=== PATIENT | male | born 1950 | race Caucasian/White ===

== ENCOUNTER 2016-11-05 06:14 | Inpatient (IN) | payer OTHER, MEDICARE ==
[2016-10-26 10:02] LABS: BASOPHILS 1.1 %; BASOPHILS ABSOLUTE 0.06 10/3/uL (0.0-0.16); EOSINOPHILS 2.6 %; EOSINOPHILS ABSOLUTE 0.15 10/3/uL (0.0-0.53); HEMATOCRIT 40.4 % (40.0-51.0); HEMOGLOBIN 13.3 g/dL (13.6-17.8); IMMATURE GRANULOCYTES 0.4 %; IMMATURE GRANULOCYTES ABSOLUTE 0.02 10/3/uL (0.0-0.11); LYMPHOCYTES 24.3 %; LYMPHOCYTES ABSOLUTE 1.38 10/3/uL (0.67-4.30); MANUAL DIFF NO %; MEAN CORPUS HGB CONC 32.9 g/dL (32.0-36.0); MEAN CORPUSCULAR HEMOGLOB 32.3 pg (26.0-34.0); MEAN CORPUSCULAR VOLUME 98.1 fL (80-100); MEAN PLATELET VOLUME 9.5 fL (9.2-13.0); MONOCYTES ABSOLUTE 0.74 10/3/uL (0.21-1.20); NEUTROPHILS 58.6 %; NEUTROPHILS ABSOLUTE 3.33 10/3/uL (2.02-8.40); PLATELET COUNT 165 10/3/uL (150-400); RBC DISTRIBUTION WIDTH 17.7 % (12.0-16.0); RED CELL COUNT 4.12 10/6/uL (4.7-6.1); WHITE BLOOD CELLS 5.7 10/3/uL (4.5-10.5)
[2016-10-26 10:18] LABS: A/G RATIO 0.6 (0.7-1.9); ALBUMIN 3.1 G/DL (3.5-5.0); ALKALINE PHOSPHATASE 194 U/L (45-117); BUN (BLOOD UREA NITROGEN) 19 MG/DL (6-23); CALCIUM, SERUM 9.4 MG/DL (8.5-10.4); CHLORIDE, SERUM 101 MMOL/L (96-112); CO2 (CARBON DIOXIDE) 26 MMOL/L (24-34); CREATININE 1.05 MG/DL (0.70-1.30); GFR AFRICAN AMERICAN 84 ML/MIN (>=60); GFR NON AFRICAN AMERICAN 73 ML/MIN (>=60); GLOBULIN 4.8 G/DL (2.5-4.1); GLUCOSE, SERUM 120 MG/DL (60-99); SGOT(AST) 79 U/L (5-40); SGPT(ALT) 50 U/L (5-65); SODIUM, SERUM 137 MMOL/L (135-148); TOTAL BILIRUBIN 0.9 MG/DL (0-1.2); TOTAL PROTEIN 7.9 G/DL (6.0-8.5)
--- NOTE | ~2016-11-05 | PREOPHP ---
PreOp History and Physical [id number] [place]. [address] NAME: FOZIA AYALA : 46 STATUS : PRE [facility]#: [id number] AGE: 66 ADM/REG DATE : MR#: [id number] REPORT SERV DATE: 11/05/16 DICTATED BY: RELL MANDUJANO III DATE: 10/13/16 REPORT STATUS : Draft TRANSCRIBED BY: MODL DATE: 10/13/16 HISTORY OF PRESENT ILLNESS: This 66-year-old male comes to the operating room for repair of a large incisional hernia with multiple components to the hernia. The patient has a long, large midline incision, which was related to a previous transverse colectomy, which was performed several years ago. The patient has multiple incisional hernias along the entire length of the incision. These hernias have become larger with time and are symptomatic in terms of local pain and discomfort and near-incarcerated symptoms. The patient has had no nausea, vomiting, or obstructive symptoms. He comes to the operating room now for repair of this large incisional hernia involving the entire length of the incision. PAST MEDICAL HISTORY: 1. History of transverse colon cancer, with omental and hepatic metastasis, with stable disease with the patient on maintenance chemotherapy. 2. Hypertension. 3. History of pulmonary embolus in the past. MEDICATIONS: Amlodipine, lisinopril, metoprolol, omeprazole, Xarelto, and hydrochlorothiazide. ALLERGIES: NONE. PAST SURGICAL HISTORY: Includes inguinal hernia repair x2, appendectomy, and transverse colectomy. FAMILY HISTORY: Positive for heart disease. SOCIAL HISTORY: The patient has a previous history of tobacco use. He has a history of alcohol use. REVIEW OF SYSTEMS: The patient complains of shortness of breath and easy bruising. His 14-point review of systems is otherwise unremarkable. PHYSICAL EXAMINATION: GENERAL: Reveals a very obese male, in no acute distress. He is alert and oriented x3. VITAL SIGNS: Blood pressure 98/73, pulse 103, temp 98.8. HEENT: Unremarkable. CRANIAL NERVES: 2 through 12 are normal. LUNGS: Clear. CARDIAC: Normal. ABDOMEN: Soft and nontender. The patient has a well-healed midline incision from the xiphoid to the umbilicus. There were multiple incisional hernias along the entire length of the incision. The hernias are reducible. EXTREMITIES: Normal. PreOp History and Physical [address] [address] NAME: FOZIA AYALA : 46 STATUS : PRE [facility] PAT#: [id number] AGE: 66 ADM/REG DATE : MR#: [id number] REPORT SERV DATE: 11/05/16 DICTATED BY: RELL MANDUJANO III DATE: 10/13/16 REPORT STATUS : Draft TRANSCRIBED BY: SERENA DATE: 10/13/16 LABORATORY DATA: CT scan of the abdomen and pelvis shows pulmonary nodules, hepatic nodules, and incisional hernia containing small bowel. ASSESSMENT: 1. 66-year-old male with enlarging symptomatic incisional hernias. 2. 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 3. Hypertension. 4. Obesity. PLAN: The patient comes to the operating room now for repair of this large incisional hernia with multiple components. This procedure, the risks, benefits, and alternatives, including not limited to the risk for bleeding, infection, enterotomy, injury to any abdominal structure, postop small bowel obstruction, ileus, and recurrence of any or all of the hernias, seroma formation, hematoma formation, need for use of mesh, risk of infection of mesh or enterocutaneous fistula requiring removal of the mesh, and unforeseen complications including deep venous thrombosis, pulmonary embolus, myocardial infarction, stroke, pneumonia, and have been fully and completely explained to the patient at length prior to surgery. The fact that this is a major operation with risk for major morbidity and mortality has been explained. The expected length of recovery has been explained. The option of nonoperative management has been offered to the patient but declined. The fact that he will be at increased risk for thromboembolic complications while his Xarelto is held perioperatively has been explained as well as increased risk of bleeding because of use of this medication. The patient's questions have been answered. He understands the risks and agrees to the surgery as planned. DOUG/SERENA Rell Mandujano III, M.D. / [id number]
--- NOTE | ~2016-11-05 | OP ---
Record Of Operation [facility] [address], [place] [address] NAME: FOZIA AYALA : 46 STATUS : ADM Mario PAT#: [id number] AGE: 66 ADM/REG DATE : 11/05/16 MR#: [id number] REPORT SERV DATE: 11/05/16 DICTATED BY: RELL MANDUJANO III DATE: 11/05/16 REPORT STATUS : Draft TRANSCRIBED BY: MODL DATE: 11/05/16 DATE OF PROCEDURE: 11/05/2016 ADDENDUM The procedure performed was open repair of a massive incisional hernia with Prolene mesh and bilateral external oblique fascial component separation. Vicenta/SERENA Rell Mandujano III, M.D. / [id number] CC: Trenton Coyne III, D.O.
--- NOTE | ~2016-11-05 | OP ---
Record Of Operation [facility] [address] [facility] [place]. [address] NAME: FOZIA AYALA : 46 STATUS : ADM Mario PAT#: [id number] AGE: 66 ADM/REG DATE : 11/05/16 MR#: [id number] REPORT SERV DATE: 11/06/16 DICTATED BY: RELL MANDUJANO III DATE: 11/05/16 REPORT STATUS : Draft TRANSCRIBED BY: MODL DATE: 11/05/16 DATE OF PROCEDURE: 11/05/2016 PREOPERATIVE DIAGNOSIS: Massive symptomatic incisional hernia. POSTOPERATIVE DIAGNOSES: Massive symptomatic incisional hernia, large incisional hernia with two components. </PROCEDURES Open repair of a massive incisional hernia with Prolene mesh and bilateral external oblique fascial component separation. SURGEON: Rell Mandujano M.D. ANESTHESIA: General with intubation. COMPLICATIONS: None. ESTIMATED BLOOD LOSS: 10 mL. SPECIMENS: None. DRAINS: Dharmesh-Knutson in subcutaneous tissue. LAP AND SPONGE COUNT: Correct x3. BRIEF HISTORY: This 66-year-old male presented with an extremely large, massive incisional hernia which was symptomatic. There was a small hernia just inferior to this, which was also symptomatic. This was related to a previous laparotomy for colon surgery. It was felt that open repair of this incisional hernia was indicated. This procedure, the risks, benefits, and alternatives, including but not limited to the risk for bleeding, infection, enterotomy, injury to any abdominal structure, postop small bowel obstruction, ileus, recurrence of the hernia, seroma formation, hematoma formation, infection of the mesh or enterocutaneous fistula requiring removal of mesh and unforeseen complications including deep venous thrombosis, pulmonary embolus, myocardial infarction, stroke, pneumonia, and were fully and completely explained to the patient's family at length prior to the surgery. The fact that this was a major operation with risk for major morbidity and mortality was explained. The expected length of recovery was explained. The patient had questions, which were answered. He fully understood the risks and agreed to the surgery as planned. FINDINGS: The patient had an extremely large incisional hernia. There was a second incisional hernia just inferior to this. These were both repaired through the same incision. Bilateral external oblique component separation was performed to relax the incision towards the midline. Record Of Operation [facility] [address] [facility] [place]. [address] NAME: FOZIA AYALA : 46 STATUS : ADM Mario PAT#: [id number] AGE: 66 ADM/REG DATE : 11/05/16 MR#: [id number] REPORT SERV DATE: 11/06/16 DICTATED BY: RELL MANDUJANO III DATE: 11/05/16 REPORT STATUS : Draft TRANSCRIBED BY: MODLisa DATE: 11/05/16 DESCRIPTION OF PROCEDURE: After being properly identified and after discussing the risks and benefits of the surgery with the patient's family again in the preoperative area, the patient was taken to the operating room and placed in supine position on the operating room table. General anesthesia was administered and he was intubated without difficulty. A Cavazos catheter was inserted. The abdomen was prepped and draped sterilely in the usual fashion. After an appropriate "time-out" per [employer] standards, a midline incision was made over the previous midline incision beginning in the mid abdomen continued toward the umbilicus, the incision was continued to the subcutaneous tissue. Hemostasis was controlled with the cautery. We immediately encountered a large fascial defect. This involved the entire length of the incision. There was a second component to this just to the right of the inferior aspect of this incision. The bridge between these two defects was opened so as to have one large incisional hernia. Using sharp dissection, the skin and subcutaneous tissue around the defect anteriorly was fully mobilized to the lateral edges of the abdominal wall bilaterally. The mobilization was continued to the lateral aspect of the external oblique fascia. The external oblique component separation was then performed by dividing the external oblique fascia laterally along the entire length of the incision. This resulted in good relaxation of the external oblique fascia and gave us another 2 cm in the midline. This was done bilaterally. There were some adhesions between the omentum and underside of the abdominal wall posteriorly and these were divided. There was no obvious evidence for carcinomatosis or malignancy in the abdominal cavity. Hemostasis was assured. We then selected a Ventralight coated mesh. This was placed beneath the edges of the fascia around the entire periphery of the defect so as to have the mesh overlap the edges of the fascia by 3 cm around the entire periphery of the defect. The mesh was then secured around the edges of the fascia with short segments of interrupted #1 Prolene sutures. Upon completion of this, the mesh lay nicely over the defect and was located posterior to the fascia. Hemostasis was assured. The mesh was not twisted or kinked in anyway and was not under any tension. The wound was irrigated copiously with saline. Hemostasis was assured. A Dharmesh-Knutson drain was brought through the separate stab wound and placed in the subcutaneous tissue. The subcutaneous tissue was closed with a running 3-0 chromic suture. The skin was closed with a running subcuticular 4-0 Monocryl stitch. Dressings were applied. Anesthesia was reversed. The patient was taken to the recovery room in stable condition. He tolerated the procedure well. His family was informed the results of the surgery. The patient will remain in the hospital for postoperative care. DOUG/SERENA Rell Mandujano III, M.D. / [id number] Record Of Operation [address] [address] NAME: FOZIA AYALA : 46 STATUS : ADM Mario PAT#: [id number] AGE: 66 ADM/REG DATE : 11/05/16 MR#: [id number] REPORT SERV DATE: 11/06/16 DICTATED BY: RELL MANDUJANO III DATE: 11/05/16 REPORT STATUS : Draft TRANSCRIBED BY: SERENA DATE: 11/05/16 CC: Trenton Coyne III, D.O.
--- NOTE | ~2016-11-05 | DS ---
Discharge Summary [facility] [address] [place]. [address] NAME: FOZIA AYALA : 46 STATUS : DIS IN PAT#: [id number] AGE: 66 ADM/REG DATE : 11/05/16 MR#: [id number] REPORT SERV DATE: 11/19/16 DICTATED BY: RELL MANDUJANO III DATE: 11/18/16 REPORT STATUS : Draft TRANSCRIBED BY: SERENA DATE: 11/18/16 Data Collection from hospitalization DISCHARGE DIAGNOSIS(ES): 1. Massive symptomatic incisional hernia. 2. Large incisional hernia with two component. 3. Hypertension. 4. History of transverse colon cancer and hepatic metastasis. CONSULTATIONS: None. PROCEDURES PERFORMED: Open repair of massive incisional hernia with Prolene mesh and bilateral external oblique fascial component separation, 11/05/2016. MEDICATIONS: Norvasc 10 mg daily, hydrochlorothiazide 25 mg daily, [place] 5/325 one to two tablets every six hours as needed, Prinivil 20 mg daily, Toprol-XL 25 mg daily, Prilosec 20 mg daily, and Xarelto 20 mg as instructed. CONDITION AT DISCHARGE: Stable. DISPOSITION: The patient was discharged home on a low-residue diet with activities as instructed. He would follow up with me in two weeks following discharge. HOSPITAL COURSE: This is a 66-year-old man who had presented with an extremely large massive incisional hernia which was symptomatic. There was a small hernia just inferior to this which was also symptomatic. This was related to a previous laparotomy for colon surgery. It was felt that open repair of this incisional hernia was indicated. Treatment options were discussed, and it was elected to proceed with surgical intervention. He was admitted to the hospital at this time for further evaluation and treatment. Upon admission, he was taken to the operating room where he underwent the above-mentioned procedure. He tolerated this well. There were no complications. On postop day #1, he was comfortable. His lungs were clear. He was tolerating his diet. The Cavazos catheter was removed, and REFERRAL NURSE was discontinued. His diet was advanced. We encouraged him to increase his activity. White blood cell count was 12,900. On postop day #2, he was afebrile. He was tolerating his diet. He was passing flatus. He was encouraged to use incentive spirometry. Discharge planning was performed. He was making a slow but steady recovery. On 11/08/2016, he continued to do well. White count had decreased to 6500. Discharge instructions were given. Due to his improved and stable condition, he was discharged home with the above-stated instructions. Information collected by: Geno Bonds I submit the above information as my discharge summary. LIDIA/SERENA Discharge Summary [address] [address] NAME: FOZIA AYALA : 46 STATUS : DIS IN PAT#: [id number] AGE: 66 ADM/REG DATE : 11/05/16 MR#: [id number] REPORT SERV DATE: 11/19/16 DICTATED BY: RELL MANDUJANO III DATE: 11/18/16 REPORT STATUS : Draft TRANSCRIBED BY: SERENA DATE: 11/18/16 Rell Mandujano III, M.D. / [id number] CC: Trenton Coyne III, D.O.
[~2016-11-05 06:14] MED LIST: AVASTIN; BACDS PO; CIP5 PO; HYDROCHLOROT12.5 MG PO; HYDROCHLOROT25 MG PO; LOP25 PO; LOVENOX1C SC; MULTIVITAMI1 PO; NORCO1 TA1 PO; NORV10 PO; PR12.5; PRILO PO; PRIN20 PO; PROTONIX PO; TOPXL25 PO; XARELTO15 MG PO; XARELTO20 MG PO; ZESTRIL20 MG PO; ZOFRAN ODT4 MG; [UNRECOGNIZED DRUG - CODE]
[2016-11-06 06:52] LABS: BASOPHILS 0.1 %; BASOPHILS ABSOLUTE 0.01 10/3/uL (0.0-0.16); EOSINOPHILS 0 %; HEMOGLOBIN 11.1 g/dL (13.6-17.8); IMMATURE GRANULOCYTES 0.2 %; IMMATURE GRANULOCYTES ABSOLUTE 0.03 10/3/uL (0.0-0.11); LYMPHOCYTES 5.7 %; LYMPHOCYTES ABSOLUTE 0.74 10/3/uL (0.67-4.30); MEAN CORPUS HGB CONC 33.5 g/dL (32.0-36.0); MEAN CORPUSCULAR HEMOGLOB 32.5 pg (26.0-34.0); MEAN CORPUSCULAR VOLUME 96.8 fL (80-100); MEAN PLATELET VOLUME 9.1 fL (9.2-13.0); MONOCYTES 9.7 %; MONOCYTES ABSOLUTE 1.25 10/3/uL (0.21-1.20); NEUTROPHILS 84.3 %; NEUTROPHILS ABSOLUTE 10.89 10/3/uL (2.02-8.40); PLATELET COUNT 142 10/3/uL (150-400); RED CELL COUNT 3.42 10/6/uL (4.7-6.1)
[2016-11-06 06:55] LABS: HEMATOCRIT 33.1 % (40.0-51.0); MANUAL DIFF NO %; WHITE BLOOD CELLS 12.9 10/3/uL (4.5-10.5)
[2016-11-06 07:04] LABS: BUN (BLOOD UREA NITROGEN) 29 MG/DL (6-23); CALCIUM, SERUM 8.8 MG/DL (8.5-10.4); CHLORIDE, SERUM 100 MMOL/L (96-112); CO2 (CARBON DIOXIDE) 25 MMOL/L (24-34); CREATININE 1.42 MG/DL (0.70-1.30); GFR AFRICAN AMERICAN 58 ML/MIN (>=60); GFR NON AFRICAN AMERICAN 50 ML/MIN (>=60); GLUCOSE, SERUM 145 MG/DL (60-99); POTASSIUM, SERUM 4.6 MMOL/L (3.5-5.3); SODIUM, SERUM 136 MMOL/L (135-148)
[2016-11-08 05:43] LABS: BASOPHILS 0.3 %; BASOPHILS ABSOLUTE 0.02 10/3/uL (0.0-0.16); EOSINOPHILS 1.2 %; EOSINOPHILS ABSOLUTE 0.08 10/3/uL (0.0-0.53); HEMOGLOBIN 11.8 g/dL (13.6-17.8); IMMATURE GRANULOCYTES 0.2 %; IMMATURE GRANULOCYTES ABSOLUTE 0.01 10/3/uL (0.0-0.11); LYMPHOCYTES ABSOLUTE 1.17 10/3/uL (0.67-4.30); MEAN CORPUS HGB CONC 33.7 g/dL (32.0-36.0); MEAN CORPUSCULAR HEMOGLOB 33.1 pg (26.0-34.0); MONOCYTES 15.7 %; MONOCYTES ABSOLUTE 1.02 10/3/uL (0.21-1.20); NEUTROPHILS 64.6 %; NEUTROPHILS ABSOLUTE 4.21 10/3/uL (2.02-8.40); PLATELET COUNT 115 10/3/uL (150-400); RBC DISTRIBUTION WIDTH 18.6 % (12.0-16.0); RED CELL COUNT 3.57 10/6/uL (4.7-6.1)
[2016-11-08 05:49] LABS: MANUAL DIFF NO %; WHITE BLOOD CELLS 6.5 10/3/uL (4.5-10.5)
[2016-11-08 05:59] LABS: CALCIUM, SERUM 8.8 MG/DL (8.5-10.4); CHLORIDE, SERUM 103 MMOL/L (96-112); CO2 (CARBON DIOXIDE) 27 MMOL/L (24-34); POTASSIUM, SERUM 4.4 MMOL/L (3.5-5.3); SODIUM, SERUM 138 MMOL/L (135-148)
[2016-11-08 06:00] LABS: BUN (BLOOD UREA NITROGEN) 11 MG/DL (6-23)
[2016-11-08 06:01] LABS: CREATININE 0.81 MG/DL (0.70-1.30); GFR AFRICAN AMERICAN 106 ML/MIN (>=60); GFR NON AFRICAN AMERICAN 91 ML/MIN (>=60); GLUCOSE, SERUM 94 MG/DL (60-99)
[2016-11-08] MEDS ORDERED: NORCO1 TA1 PO (14:18)
== END 2016-11-08 15:30 | disposition home or self-care (01) | DRG 354 ==
LOC: SDC 06:14 → 5SO 13:27
PROVIDERS: Surgery
PROC: 0WUF0JZ Supplement Abdominal Wall with Synthetic Substitute, Open Approach (ICD-10-PCS; principal; 2016-11-05 07:45)
DX: K43.2 Incisional hernia without obstruction or gangrene (principal); C78.7 Secondary malignant neoplasm of liver and intrahepatic bile duct; C78.00 Secondary malignant neoplasm of unspecified lung; C78.6 Secondary malignant neoplasm of retroperitoneum and peritoneum; I10 Essential (primary) hypertension; Z92.21 Personal history of antineoplastic chemotherapy; Z85.038 Personal history of other malignant neoplasm of large intestine; Z79.899 Other long term (current) drug therapy; Z88.8 Allergy status to other drugs, medicaments and biological substances; Z86.711 Personal history of pulmonary embolism; Z82.49 Family history of ischemic heart disease and other diseases of the circulatory system; E66.9 Obesity, unspecified; Z86.718 Personal history of other venous thrombosis and embolism; Z79.01 Long term (current) use of anticoagulants
CPT/HCPCS: 71020; 80048; 80053; 85025; 87641; 93005; A9270-GY; C1781; J0690; J1885; J2270; J2370; J2405; J2710; J3010